=== PATIENT | male | born 1980 ===

== ENCOUNTER 2018-04-19 09:29 | Inpatient (IN) | payer MEDICAID, OTHER ==
[2018-04-19] MEDS ORDERED: Pantoprazole 40 mg EC Tab PO STA (11:35)
[2018-04-19 11:40] LABS: SQUAMOUS EPITHIAL < 1 /hpf (0-5); URINE BACTERIA RARE (<OCC); URINE BILIRUBIN NEGATIVE (NEGATIVE); URINE BLOOD 2+ (NEGATIVE); URINE CLARITY Clear (Clear); URINE COLOR Yellow (YELLOW); URINE GLUCOSE (UA) NORMAL (Normal); URINE LEUKOCYTE ESTERASE NEG Leu/uL (Negative); URINE PROTEIN 1+ mg/dL (NEGATIVE); URINE UROBILINOGEN NORMAL mg/dL (0.2-1.0)
[2018-04-19] MEDS ORDERED: Pantoprazole 40 mg EC Tab PO ONE (11:45)
[2018-04-19 11:46] LABS: BASO % 0.3 % (0.0-2.0); HEMOGLOBIN 15.4 g/dL (12.0-18.0); LYMPH # 0.7 K/uL (1.0-4.3); LYMPH % 4.6 % (20.0-40.0); MEAN CELL VOLUME 102.7 fL (80.0-94.0); MEAN CORPUSCULAR HEMOGLOBIN 35.7 pg (27.0-31.0); MEAN CORPUSCULAR HGB CONC 34.8 g/dL (33.0-37.0); MEAN PLATELET VOLUME 7.1 fL (7.2-11.7); MONO # 0.5 K/uL (0.0-0.8); MONO % 3.5 % (0.0-10.0); NEUT # 14.3 K/uL (1.8-7.0); NEUT % 91.6 % (50.0-75.0); NRBC % 0.1 % (0.0-2.0); PLATELET COUNT 324 K/uL (130-400); RBC 4.31 Mil/uL (4.40-5.90); WHITE BLOOD COUNT 15.6 K/uL (4.8-10.8)
[2018-04-19 11:53] LABS: ALB/GLOB RATIO 1.4 (1.0-2.1); ALT/SGPT 39 U/L (21-72); AST/SGOT 44 U/L (17-59); BLOOD UREA NITROGEN 19 mg/dL (9-20); CALCIUM 9.5 mg/dl (8.6-10.4); GFR NON-AFRICAN AMERICAN > 60
--- NOTE | 2018-04-19 11:53 | C.PDOC ---
History Of Present Illness 37 y/o male presents to ED requesting detox from ETOH and with c/o vomiting associated with lightheadedness since 3am this morning. Patient reports last drink 9am this morning and denies headache, vision changes, diarrhea, SI/HI or any other complaints at this time. Time Seen by Provider: 04/19/18 11:03 Chief Complaint (Nursing): Substance Abuse History Per: Patient History/Exam Limitations: no limitations Onset/Duration Of Symptoms: Days Current Symptoms Are (Timing): Still Present Suicide/Self Injury Attempted (Context): None Modifying Factor(s): Alcohol Past Medical History Reviewed: Historical Data, Nursing Documentation, Vital Signs Vital Signs: Last Vital Signs Temp 98.3 F 04/19/18 09:47 Pulse 81 04/19/18 09:47 Resp 18 04/19/18 09:47 BP 125/84 04/19/18 09:47 Pulse Ox 98 04/19/18 11:54 - Medical History PMH: Anemia, Seizures Surgical History: Tonsillectomy Family History: States: No Known Family Hx - Social History Hx Alcohol Use: Yes Hx Substance Use: Yes - Immunization History Hx Tetanus Toxoid Vaccination: No Hx Influenza Vaccination: No Hx Pneumococcal Vaccination: No Review Of Systems Constitutional: Negative for: Fever, Chills Gastrointestinal: Positive for: Vomiting. Negative for: Abdominal Pain, Diarrhea Skin: Negative for: Rash Psych: Positive for: Other (substance abuse). Negative for: Suicidal ideation Physical Exam - Physical Exam Appears: Non-toxic, No Acute Distress Skin: Warm, Dry, No Rash Head: Atraumatic, Normacephalic Eye(s): bilateral: Normal Inspection Oral Mucosa: Moist Neck: Supple Cardiovascular: Rhythm Regular Respiratory: Normal Breath Sounds, No Rales, No Rhonchi, No Wheezing Gastrointestinal/Abdominal: Soft, No Tenderness, No Guarding, No Rebound Neurological/Psych: Oriented x3, Normal Speech, Normal Cognition ED Course And Treatment - Laboratory Results Result Diagrams: 04/19/18 11:28 04/19/18 11:28 Lab Interpretation: Abnormal (ETOH 132H, + leukocytosis, tox + THC) O2 Sat by Pulse Oximetry: 98 (RA) Pulse Ox Interpretation: Normal Disposition Doctor Will See Patient In The: Hospital Counseled Patient/Family Regarding: Studies Performed, Diagnosis - Disposition Disposition: HOSPITALIZED Disposition Time: 12:55 Condition: GOOD Forms: [facility] ([place]) - Clinical Impression Clinical Impression: Alcohol abuse, Cannabis abuse - Scribe Statement The provider has reviewed the documentation as recorded by the Ravinibarian Calixto All medical record entries made by the Ravinibe were at my direction and personally dictated by me. I have reviewed the chart and agree that the record accurately reflects my personal performance of the history, physical exam, medical decision making, and the department course for this patient. I have also personally directed, reviewed, and agree with the discharge instructions and disposition.
[2018-04-19 12:06] LABS: BARBITURATES, UR NEGATIVE (NEGATIVE); BENZODIAZEPINES, UR NEGATIVE (NEGATIVE); OPIATES, UR NEGATIVE (NEGATIVE); PHENCYCLIDINE, UR NEGATIVE (NEGATIVE)
[2018-04-19 12:16] LABS: BANDS 2 % (0-2); LYMPHOCYTE 8 % (20-40); MONOCYTE 3 % (0-10); NEUTROPHIL 87 % (50-75); PLATELET ESTIMATE NORMAL (NORMAL); TOTAL CELLS COUNTED 100
--- NOTE | 2018-04-19 14:48 | PCM.BM ---
<Jie Villalpando - Last Filed: 04/19/18 14:46> Treatment Plan Problems - Problems identified on initial assessmt Potential for alcohol withdrawal Date Initiated: 04/19/18 Time Initiated: 14:47 Assessment reference: NA Status: Active Treatment assets and liabiliti Patient Assests: cooperative, insightful, motivated, self-reliant Patient Liabilities: financial problems, relationship conflicts, medical problems - Milieu Protocol Maintain good personal hygiene: daily Encourage regular showers, daily Remind patient to perform daily oral care, daily Assist patient to perform ADL's, every shift Encourage regular showers, every shift Remind patient to perform daily oral care, every shift Assist patient to perform ADL's Maintain personal safety: daily Educate patient to report safety concerns to staff, daily Monitor environment for contraband/sharps, every shift Educate patient to report safety concerns to staff, every shift Monitor environment for contraband/sharps Medication safety: Monitor for expected outcome, potential side effects: daily, every shift, Assess barriers to learning: daily, every shift, Assess readiness for medication education: daily, every shift <Fely Yeboah - Last Filed: 04/20/18 16:23> - Diagnosis (1) Alcohol use disorder, severe, dependence Status: Acute Interventions: 04/20/18 16:23 * Assess 7x/week regarding severity of withdrawal * Educate regarding risks, benefits, side effects and alternatives of medications * Use Motivational Interviewing for abstinence * Use CBT for relapse prevention * Medication management for withdrawal symptoms * Encourage medication assisted treatment * <Christy Ariza - Last Filed: 04/21/18 08:03> Family Contact Family involvement: Famliy/SO not involved - Goals for Treatment Patient goals for treatment: Complete detox and transition to IOP. Discharge/Continuing Care - Education Needs Education Needs: Patient Medication, Patient Diagnosis/Disease Process, Patient Coping Skills, Patient Anger Management skills, Patient Placement options, Patient Community resources - Discharge Discharge Criteria: No longer exhibiting s/s of withdrawal, Reduction of target symptoms Discharge to:: Home, With Family - Treatment Team Participation Patient/Family/SO Statement: 04/21/18 08:02 "I wanna try an IOP..." Discussed with Family/SO: No Was Patient/Family/SO present at Treatment Team Meeting: Yes
[2018-04-19] MEDS: Multiple Vitamins Tab PO SCH (15:47)
[2018-04-19] MEDS: Benzocaine/Menthol (Cepacol) Lozenge MT PRN (21:33)
[2018-04-20] MEDS: Multiple Vitamins Tab PO SCH (09:52)
[2018-04-20] MEDS: Oxymetazoline 0.05% Nasal Spray (30 ml) NS SCH ×2 (11:01→22:07)
--- NOTE | 2018-04-20 11:34 | RAD ---
Date of service: 04/20/2018 HISTORY: Alcohol abuse, cough wbc increased COMPARISON: No prior. TECHNIQUE: Chest PA and lateral FINDINGS: LUNGS: No active pulmonary disease. PLEURA: No significant pleural effusion identified. No pneumothorax apparent. CARDIOVASCULAR: Normal. OSSEOUS STRUCTURES: Late subacute or chronic left rib fractures of the left 4th 5th 6th 7th and 8th ribs identified laterally. VISUALIZED UPPER ABDOMEN: Normal. OTHER FINDINGS: None. IMPRESSION: No acute cardiopulmonary disease appreciable. Multiple mid left rib fractures again seen laterally.
--- NOTE | 2018-04-20 16:23 | PCM.PSYCH ---
Initial Psychiatric Evaluation - Initial Psychiatric Evaluation Type of Admission: Voluntary Legal Status: Capacity Chief Complaint (in patient's own words): "I need detox" History of Present Illness and Precipitating Events: PT is a 37 y/o LM currently living at home with his mother. Pt has a girlfriend and two children. Pt works in [employer] and [employer]. Pt came to [facility] yesterday due to EtOH detox. Pt began drinking alcohol at the age of 12 and drinks 3-4 pints of vodka per day, last usage was yesterday morning. Pt also reports smoking "3-4 L's" of marijuana daily since the age of 19, last usage of marijuana was yesterday. Pt has never been to inpatient detox before, nor has he been to outpatient treatment. Pt has tried to detox multiple times by himself and failed, longest sobriety lasting 2 months. Pt denies SI/HI, manic episodes, auditory, visual or tactile hallucinations. Pt smokes 1PPD. Denies cocaine, heroin, or any other substance use Psych Hx: unremarkable Traumatic Hx: unremarkable Family psych Hx: unremarkable Medical Hx: Seizure disorder. Pt mentions he had an incident 5 months ago where he suffered head trauma while being intoxicated, which may exacerbate his seizure disorder. Pt is currently being followed by a neurologist and is on [facility] Current Medications: Active Medications Generic Name Dose Route Start Last Admin Trade Name Freq PRN Reason Stop Dose Admin Benzocaine/Menthol 1 shamar 04/19/18 16:48 04/19/18 21:33 Cepacol Sore Throat MT 1 shamar Q4 PRN Administration Sore Throat Chlordiazepoxide 25 mg 04/19/18 18:00 04/20/18 11:50 Librium PO 04/24/18 17:59 25 mg Q6H CAMRYN Administration Taper Chlordiazepoxide 25 mg 04/19/18 14:56 04/19/18 15:46 Librium PO 25 mg Q4H PRN Administration Alcohol Withdrawal Clonidine HCl 0.1 mg 04/19/18 14:56 Catapres PO Q4H PRN Symptoms of alcohol withdrawl Folic Acid 1 mg 04/19/18 15:00 04/20/18 09:52 Folic Acid PO 1 mg DAILY CAMRYN Administration Gabapentin 300 mg 04/19/18 18:00 04/20/18 13:42 Neurontin PO 300 mg TID CAMRYN Administration Hydroxyzine HCl 50 mg 04/19/18 14:53 04/19/18 21:34 Atarax PO 50 mg Q6H PRN Administration Anxiety Ibuprofen 600 mg 04/19/18 14:53 04/19/18 21:33 Motrin Tab PO 600 mg Q6H PRN Administration Pain, moderate (4-7) Levetiracetam 1,000 mg 04/19/18 18:00 04/20/18 09:52 Keppra PO 1,000 mg BID CAMRYN Administration Multivitamins 1 tab 04/19/18 15:00 04/20/18 09:52 Hexavitamin PO 1 tab DAILY CAMRYN Administration Nicotine 1 patch 04/20/18 13:00 04/20/18 13:42 Nicoderm Cq TD 1 patch DAILY CAMRYN Administration Oxymetazoline HCl 0 ml 04/20/18 11:00 04/20/18 11:01 Afrin 0.05% NS 1 spr Q12H CAMRYN Administration Thiamine HCl 100 mg 04/19/18 15:00 04/20/18 09:52 Vitamin B1 Tab PO 100 mg DAILY CAMRYN Administration Trazodone HCl 100 mg 04/19/18 22:00 04/19/18 21:34 Desyrel PO 100 mg HS CAMRYN Administration Past Psychiatric History - Past Psychiatric History Previous Treatment History: None Pertinent Medical Hx (Current Medical&Sleep Prob, Allergies): Allergies Allergy/AdvReac Type Severity Reaction Status Date / Time No Known Allergies Allergy Verified 04/19/18 09:53 Review of Systems - Neurological Neurological: UNREMARKABLE - Psychiatric Psychiatric: Abnormal Sleep Pattern, Anxiety, Difficulty Concentrating, Irritability. absent: Hallucinations, Homicidal Ideation, Paranoia, Suicidal Ideation Mental Status Examination - Personal Presentation Personal Presentation: Looks stated age - Affect Affect: Constricted - Motor Activity Motor Activity: Calm - Reliability in Providing Information Reliability in Providing Information: Good - Speech Speech: Organized - Mood Mood: Anxious - Formal Thought Process Formal Thought Process: No Impairment - Cognitive Functions Orientation: Person, Place, Situation, Time Sensorium: Alert Attention/Concentration: Attentive Estimate of Intelligence: Average Judgement: Intact, as evidence by: Insight regarding need for hospitalization Memory: Recent intact, as evidence by: Ability to recall events of the day, Remote intact, as evidenced by: Abilit to recall sig. life events - Risk Risk: Withdrawal, Diminished functioning - Strength & Assets Inventory Strength & Assets Inventory: Cooperative - Limitations Limitations: Living alone DSM 5 DX - DSM 5 DSM 5 Diagnosis: EtOH use disorder, severe EtOH withdrawal Cannabis use disorder, severe - Recommended/Plan of Treatment Treatment Recommendations and Plan of Treatment: Librium 25mg for EtOH use disorder As need medications All risks, benefits and alternatives of the meds discussed, and the pt agreed and understood. Attend groups and activities Individual therapy daily Psychoeducation and support daily Encourage compliance with meds and after care Refer to outpatient program Teach healthy lifestyle methods, i.e. diet, exercise, meditation Smoking cessation and patch if needed Projected ELOS: 4-5 days Prognosis: good w treatment - Smoking Cessation Smoking Cessation Initiated: Yes
[2018-04-20] MEDS: guaiFENesin DM 200 mg-20 mg/10 ml UD PO PRN (19:54)
[2018-04-21] MEDS: guaiFENesin DM 200 mg-20 mg/10 ml UD PO PRN ×2 (03:37→09:39)
[2018-04-21] MEDS: Multiple Vitamins Tab PO SCH (09:35)
[2018-04-21] MEDS: Benzocaine/Menthol (Cepacol) Lozenge MT PRN (09:39)
[2018-04-21] MEDS: Oxymetazoline 0.05% Nasal Spray (30 ml) NS SCH ×2 (11:59→23:14)
--- NOTE | 2018-04-21 13:24 | PCM.PYCHPN ---
Psychiatric Progress Note - Psychiatric Progress Note Patient seen today, length of contact: 16 min Patient Chief Complaint: "I need to leave tomorrow" Problems Identified/Issues Discussed: The pt is seen, chart reviewed, case discussed with staff. The pt is compliant with medications and reports no side-effects. Symptoms are improving but needs more time to stabilize. Pt attends groups and activities. Support given, psycho-education provided. After care discussed. He says he needs to go to work Sat morning otherwise he cannot pay his rent. Risks of leaving early discussed Medication Change: Yes (detox changes daily) Medical Record Reviewed: Yes Mental Status Examination - Cognitive Function Orientation: Person, Place, Situation, Time Memory: Intact Attention: WNL Concentration: WNL Association: WNL Fund of Knowledge: WNL - Mood Mood: Anxious - Affect Affect: Constricted - Speech Speech: Appropriate - Formal Thought Process Formal Thought Process: No Impairment - Suicidal Ideation Suicidal Ideation: No - Homicidal Ideation Homicidal Ideation: No Goal/Treatment Plan - Goal/Treatment Plan Need for Continued Stay: Discharge may exacerbated symptoms, Severe functional impairment Progress Toward Problem(s) and Goals/Treatment Plan: Librium detox As need medications All risks, benefits and alternatives of the meds discussed, and the pt agreed and understood. Attend groups and activities Individual therapy daily Psychoeducation and support daily Encourage compliance with meds and after care Refer to outpatient program Teach healthy lifestyle methods, i.e. diet, exercise, meditation Smoking cessation and patch if needed Estimated Date of D/C: 04/22/18
[2018-04-22] MEDS: guaiFENesin DM 200 mg-20 mg/10 ml UD PO PRN ×2 (02:46→09:40)
[2018-04-22 08:15] VITALS: BP 109/68; PULSE 82; RESP 20; TEMP 98.3; O2SAT 99
[2018-04-22] MEDS: Multiple Vitamins Tab PO SCH (09:10)
--- NOTE | 2018-04-22 09:53 | PCM.PYCHDC ---
Mental Status Examination - Mental Status Examination Orientation: Person Discharge Summary - Discharge Note Consultations:: List each consultation separately and include: 1. Reason for request. 2. Findings. 3. Follow-up Summary of Hospital Course include:: 1. Description of specific treatment plan utilized for patients during their course of treatmen. 2. Summarize the time- course for resolution of acute symptoms and/or regressed behaviors. 3. Describe issues identified and worked on during hospitalization. 4. Describe medication utilized. 5. Describe medical problems identified and treated. 6. Reassessment of suicide risk Summary of Hospital Course: PT is a 37 y/o LM currently living at home with his mother. Pt has a girlfriend and two children. 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 Pt came to [facility] yesterday due to EtOH detox. Pt began drinking alcohol at the age of 12 and drinks 3-4 pints of vodka per day, last usage was yesterday morning. Pt also reports smoking "3-4 L's" of marijuana daily since the age of 19, last usage of marijuana was yesterday. Pt has never been to inpatient detox before, nor has he been to outpatient treatment. Pt has tried to detox multiple times by himself and failed, longest sobriety lasting 2 months. Pt denies SI/HI, manic episodes, auditory, visual or tactile hallucinations. Pt smokes 1PPD. Denies cocaine, heroin, or any other substance use Psych Hx: unremarkable Traumatic Hx: unremarkable Family psych Hx: unremarkable Medical Hx: Seizure disorder. Pt mentions he had an incident 5 months ago where he suffered head trauma while being intoxicated, which may exacerbate his seizure disorder. Pt is currently being followed by a neurologist and [facility] - Diagnosis (1) Alcohol use disorder, severe, dependence Current Visit: Yes Status: Acute - Final Diagnosis (DSM 5) Condition upon Discharge: GOOD Disposition: HOME/ ROUTINE Follow-up Treatment Plan: Librium detox As need medications All risks, benefits and alternatives of the meds discussed, and the pt agreed and understood. Attend groups and activities Individual therapy daily Psychoeducation and support daily Encourage compliance with meds and after care Refer to outpatient program Teach healthy lifestyle methods, i.e. diet, exercise, meditation Smoking cessation and patch if needed Prescriptions/Medication Reconciliation: Gabapentin [Neurontin] 300 mg PO TID #90 cap levETIRAcetam [Keppra] 1,000 mg PO BID #60 tab traZODone [Desyrel] 100 mg PO HS #30 tab
== END 2018-04-22 10:00 | disposition home or self-care (01) | DRG 751 ==
LOC: C.ER 09:29 → C.7D 12:45
PROVIDERS: ADMIT Psychiatry & Neurology Psychiatry; ATTEND Psychiatry & Neurology Psychiatry
PROC: HZ2ZZZZ Detoxification Services for Substance Abuse Treatment (ICD-10-PCS; principal; 2018-04-19)
PROC: HZ52ZZZ Individual Psychotherapy for Substance Abuse Treatment, Cognitive-Behavioral (ICD-10-PCS; 2018-04-19)
PROC: HZ59ZZZ Individual Psychotherapy for Substance Abuse Treatment, Supportive (ICD-10-PCS; 2018-04-19)
PROC: HZ56ZZZ Individual Psychotherapy for Substance Abuse Treatment, Psychoeducation (ICD-10-PCS; 2018-04-19)
PROC: HZ42ZZZ Group Counseling for Substance Abuse Treatment, Cognitive-Behavioral (ICD-10-PCS; 2018-04-19)
PROC: HZ46ZZZ Group Counseling for Substance Abuse Treatment, Psychoeducation (ICD-10-PCS; 2018-04-19)
PROC: GZHZZZZ Group Psychotherapy (ICD-10-PCS; 2018-04-19)
PROC: GZ58ZZZ Individual Psychotherapy, Cognitive-Behavioral (ICD-10-PCS; 2018-04-19)
PROC: GZ56ZZZ Individual Psychotherapy, Supportive (ICD-10-PCS; 2018-04-19)
DX: F10.230 Alcohol dependence with withdrawal, uncomplicated (principal); Y90.6 Blood alcohol level of 120-199 mg/100 ml; F12.20 Cannabis dependence, uncomplicated; F17.210 Nicotine dependence, cigarettes, uncomplicated; G40.909 Epilepsy, unspecified, not intractable, without status epilepticus

== ENCOUNTER 2018-11-09 11:33 | Emergency (ER) | payer MEDICAID, OTHER ==
[2018-11-09 11:33] VITALS: BMI 47.4
[2018-11-09 11:39] VITALS: BP 151/91; PULSE 112; RESP 18; TEMP 98.4; O2SAT 98
--- NOTE | 2018-11-09 12:46 | C.PDOC ---
History Of Present Illness 38 y/o male presents to the ER complaining of "shaking" which have been present for the past 1 week. Patient states that he was sent home from work because he was "shaking." His boss advised him to have an evaluation. Of note, patient reports that he drinks everyday and his last drink was last night. Denies having fever,chills,CP,SOB, nausea, vomiting, and abdominal pain. Time Seen by Provider: 11/09/18 12:20 Chief Complaint (Nursing): Substance Abuse History Per: Patient History/Exam Limitations: no limitations Onset/Duration Of Symptoms: Days Current Symptoms Are (Timing): Still Present Severity: Moderate Past Medical History Vital Signs: Last Vital Signs Temp 98.4 F 11/09/18 11:35 Pulse 112 H 11/09/18 11:35 Resp 18 11/09/18 11:35 BP 151/91 H 11/09/18 11:35 Pulse Ox 98 11/09/18 11:35 - Medical History PMH: Anemia, Seizures Surgical History: Tonsillectomy - [facility] Procedures DETOXIFICATION SERVICES FOR SUBSTANCE ABUSE TREATMENT (04/19/18) GROUP GAS REFRIGERATOR SERVICER FOR SUBSTANCE ABUSE TREATMENT, PSYCHOEDUCATION (04/19/18) GROUP GAS REFRIGERATOR SERVICER FOR SUBSTANCE ABUSE, COGNITIVE BEHAVIORAL (04/19/18) GROUP PSYCHOTHERAPY (04/19/18) INDIV PSYCHOTHERAPY FOR SUBSTANCE ABUSE TREATMENT, SUPPORT (04/19/18) INDIV PSYCHOTHERAPY FOR SUBSTANCE ABUSE, COGNITIV BEHAVIORAL (04/19/18) INDIV PSYCHOTHERAPY FOR SUBSTANCE ABUSE, PSYCHOEDUCATION (04/19/18) INDIVIDUAL PSYCHOTHERAPY, COGNITIVE-BEHAVIORAL (04/19/18) INDIVIDUAL PSYCHOTHERAPY, SUPPORTIVE (04/19/18) Family History: States: No Known Family Hx - Social History Hx Alcohol Use: Yes Hx Substance Use: Yes - Immunization History Hx Tetanus Toxoid Vaccination: No Hx Influenza Vaccination: No Hx Pneumococcal Vaccination: No Review Of Systems Except As Marked, All Systems Reviewed And Found Negative. Constitutional: Negative for: Weakness Cardiovascular: Negative for: Chest Pain Respiratory: Negative for: Shortness of Breath Gastrointestinal: Negative for: Nausea, Vomiting, Abdominal Pain Neurological: Positive for: Other (tremors) Physical Exam - Physical Exam Appears: Non-toxic, No Acute Distress, Other (tremulous) Skin: Normal Color, Warm, Dry Head: Atraumatic, Normacephalic Eye(s): bilateral: Normal Inspection Nose: Normal Oral Mucosa: Moist Neck: Supple Chest: Symmetrical Cardiovascular: Rhythm Regular Respiratory: Normal Breath Sounds Gastrointestinal/Abdominal: Normal Exam, Soft Neurological/Psych: Oriented x3, Normal Speech ED Course And Treatment O2 Sat by Pulse Oximetry: 98 (RA) Pulse Ox Interpretation: Normal Progress Note: Case discussed and patient evaluated by wet room worker who reported there are no detox beds available today and will place him on the waiting list. Treated with librium PO. Patient is on waiting list for detox bed. Patient request discharge and return when bed available Reassessment Condition: Unchanged Medical Decision Making Medical Decision Making: Plan: --Librium PO Updates: Patient is requesting detox. CRISIS stated that there are no beds available. Patient has been discharged home. Disposition Counseled Patient/Family Regarding: Studies Performed, Diagnosis, Need For Follo wup - Disposition Referrals: Alcoholics Anonymous [Outside] [facility] [Outside] [facility] [[facility]] Disposition: HOME/ ROUTINE Disposition Time: 13:00 Condition: STABLE Additional Instructions: Follow up with clinic for further evaluation Return to ED when Detox bed available You will get a call from wet room worker to notify you on bed availability Return to hospital if any increase symptoms Instructions: Alcohol Use - When Is Drinking a Problem?, Alcohol Abuse and Alcoholism (DC) Forms: [facility] [facility] (Tunisian) - POA Present On Arrival: None - Clinical Impression Clinical Impression: Alcohol use disorder, severe, dependence - 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 - Scribe Statement The provider has reviewed the documentation as recorded by the Mayelin Neal Provider Attestation All medical record entries made by the Mayelin were at my direction and personally dictated by me. I have reviewed the chart and agree that the record accurately reflects my personal performance of the history, physical exam, medical decision making, and the department course for this patient. I have also personally directed, reviewed, and agree with the discharge instructions and disposition.
== END 2018-11-09 13:08 | disposition home or self-care (01) ==
LOC: C.ER 11:33
DX: F10.20 Alcohol dependence, uncomplicated (principal)